=== PATIENT | female | born 1945 | race Two or more races ===

== ENCOUNTER → 2019-03-24 08:56 | Outpatient (CLI) | payer OTHER ==
[~2019-03-24 08:56] MED LIST: AZOPT10 ML OP; BETIMOL5 M1 OP
== END | disposition home or self-care (01) ==
LOC: LAB 08:56 → EKG 08:56
DX: R00.2 Palpitations (principal)

== ENCOUNTER 2019-04-10 05:15 | Day surgery (SDC) | payer OTHER ==
[2019-04-10] MEDS ORDERED: KETO10TA2 PO (08:09)
== END 2019-04-10 12:10 | disposition home or self-care (01) ==
LOC: CIR.AMB 05:15 → ADM 10:45 → CIR.AMB 12:10
DX: N84.0 Polyp of corpus uteri (principal)